=== PATIENT | female | born 1975 | race Caucasian/White ===

== ENCOUNTER 2025-09-27 11:30 | Outpatient (RCR) | payer MEDICAID, SELFPAY ==
--- NOTE | 2025-09-18 14:22 | PT.OIERPT ---
PT OP Initial Eval Patient Information Outpatient Physical Therapy Treatment Date: 09/18/25 Visit Reasons: LOWER BACK PAIN Medical Diagnosis: M47.816 Treatment Dx #1: Back Pain Treatment Dx #2: LE Pain Start of Care: 09/18/25 Date of Onset: 2 years ago Smoking Status Smoking Status: Never smoker Initial Assessment Subjective: Pt is a 50 y/o female reports of chronic back pain with BLE weakness L>R worsening the past 2 years. Pt completed MRI update and findings seem to be worse compared to past results. Pt has difficulty with sitting, standing, chores, self care, cooking, cleaning, and performing recreational activities. Objective: L/S AROM: all motions are WFL with end range pain in all plane Hip PROM: all motions are WFL except IR Hip MMTs grossly: 3+/5 Special Test (+) SLR (+) Slimp Assessment: Pt demonstrate back pain consistent with sciatica leading to difficulty with ADLs. Pt will attempt physical therapy if pain persist Pt will be refer back to provider for further consultation. Short Term and Payment Collector Goals 1) Increase L/S AROM WNL in 6 wks to be able to perform chores 2) Decrease back pain to 2/10 in 6 wks to be able to sit and stand more than 30 mins 3) Increase core strength WFL in 6 wks to be able to perform work duties 4) Increase hip MMTs grossly to 4-/5 in 6 wks to be able to perform recreational activities 5) Indep with HEP Treatment Plan 1) Manual Therapy 2) Therapeutic Activities 3) Therapeutic Exercises 4) Modalities (ice, heat) Frequency and Duration: 2 x wk for 6 wks Certification Dates: 09/18/25 to 12/17/25 Procedure Charges OP PT Eval Mod Complex 30 minutes: Yes
--- NOTE | 2025-09-27 12:52 | PT.ODAYNRPT ---
PT Outpatient Daily Note OP Daily Note Outpatient Physical Therapy Treatment Date: 09/27/25 Visit Reasons: LOWER BACK PAIN Subjective: Pt c/o LBP and L LE pain. Objective: Please see flow sheet for ther ex list. Assessment: Pt demonstrates poor activity tolerance due to pain response. Plan: Continue with pOC. Length of Time (minutes) of Treatment: 30 Minutes Procedure Charges Therapeutic Exercise 30 minutes: Yes
== END 2025-09-27 23:59 | disposition home or self-care (01) ==
LOC: CPTX 11:30
PROVIDERS: PCP Nurse Practitioner Family; Referring Provider Nurse Practitioner Family; Visit Provider Nurse Practitioner Family
DX: M47.816 Spondylosis without myelopathy or radiculopathy, lumbar region (principal)
CPT/HCPCS: 97110; 97162